=== PATIENT | female | born 1950 | race Caucasian/White ===

== ENCOUNTER 2017-12-16 00:13 | Day surgery (SDC) | payer OTHER ==
[~2017-12-16 00:13] MED LIST: AMPYRA10 MG PO; AUBAGIO7 MG PO; BACL10 PO; Budeprion Xl300 MG; DIAZ10 PO; FURO20 PO; INTE30I; LOSA25; REBIF; Solu-Medrol1000 MG IV; XANAFLEX; [UNRECOGNIZED DRUG - OTHER] PO
== END 2017-12-16 11:43 | disposition home or self-care (01) ==
LOC: ATC 00:13
DX: G35 Multiple sclerosis (principal)
CPT/HCPCS: 96365; J2930

== ENCOUNTER 2018-01-17 00:18 | Day surgery (SDC) | payer OTHER | END 2018-01-17 12:00 | disposition home or self-care (01) | LOC: ATC 00:18 | DX: G35 Multiple sclerosis (principal); E78.5 Hyperlipidemia, unspecified; E01.1 Iodine-deficiency related multinodular (endemic) goiter | CPT/HCPCS: 96365; J2930 ==

== ENCOUNTER 2018-02-17 00:28 | Day surgery (SDC) | payer OTHER | END 2018-02-17 11:30 | disposition home or self-care (01) | LOC: ATC 00:28 | DX: G35 Multiple sclerosis (principal) | CPT/HCPCS: 96365; J2930 ==

== ENCOUNTER 2018-05-07 09:59 | Day surgery (SDC) | payer OTHER | END 2018-05-07 11:19 | disposition home or self-care (01) | LOC: ATC 09:59 | DX: G35 Multiple sclerosis (principal) | CPT/HCPCS: 96365; J2930 ==

== ENCOUNTER 2018-06-06 00:25 | Day surgery (SDC) | payer OTHER | END 2018-06-06 23:37 | disposition home or self-care (01) | LOC: ATC 00:25 | DX: G35 Multiple sclerosis (principal) | CPT/HCPCS: J2930 ==

== ENCOUNTER 2018-06-11 00:03 | Day surgery (SDC) | payer OTHER | END 2018-06-11 11:20 | disposition home or self-care (01) | LOC: ATC 00:03 | DX: G35 Multiple sclerosis (principal) | CPT/HCPCS: J2930 ==

== ENCOUNTER 2018-07-03 00:20 | Day surgery (SDC) | payer OTHER | END 2018-07-03 22:38 | disposition home or self-care (01) | LOC: ATC 00:20 | DX: G35 Multiple sclerosis (principal) | CPT/HCPCS: 96365; J2930 ==

== ENCOUNTER 2018-08-04 00:14 | Day surgery (SDC) | payer OTHER | END 2018-08-04 22:40 | disposition home or self-care (01) | LOC: ATC 00:14 | DX: G35 Multiple sclerosis (principal) | CPT/HCPCS: J2930 ==

== ENCOUNTER 2018-08-07 00:24 | Day surgery (SDC) | payer OTHER | END 2018-08-07 11:35 | disposition home or self-care (01) | LOC: ATC 00:24 | DX: G35 Multiple sclerosis (principal) | CPT/HCPCS: 96365; J2930 ==

== ENCOUNTER 2018-11-04 00:03 | Day surgery (SDC) | payer OTHER ==
[2018-11-04] MEDS ORDERED: Zanaflex4 MG PO (12:02)
[2018-11-04] MEDS ORDERED: TRAZ50 PO (12:05)
[2018-11-04] MEDS ORDERED: AMPYRA10 MG PO (12:06)
[2018-11-04] MEDS ORDERED: GABA300T24 PO (12:08)
== END 2018-11-04 11:46 | disposition home or self-care (01) ==
LOC: ATC 00:03
DX: G35 Multiple sclerosis (principal)
CPT/HCPCS: 96365; J2930

== ENCOUNTER 2018-12-18 00:09 | Day surgery (SDC) | payer OTHER ==
[~2018-12-18 00:09] MED LIST changes: +GABA300T24 PO; +TRAZ50 PO; +Zanaflex4 MG PO
== END 2018-12-18 11:47 | disposition home or self-care (01) ==
LOC: ATC 00:09
DX: G35 Multiple sclerosis (principal); E55.9 Vitamin D deficiency, unspecified; R26.89 Other abnormalities of gait and mobility; M62.838 Other muscle spasm; R53.83 Other fatigue
CPT/HCPCS: 96365; J2930

== ENCOUNTER 2019-01-14 | Day surgery (SDC) | payer OTHER | END 2019-01-14 22:49 | disposition home or self-care (01) | LOC: ATC | DX: G35 Multiple sclerosis (principal); I10 Essential (primary) hypertension; E78.5 Hyperlipidemia, unspecified; F32.9 Major depressive disorder, single episode, unspecified; Z79.899 Other long term (current) drug therapy | CPT/HCPCS: 96365; J2930 ==

== ENCOUNTER 2019-01-30 00:37 | Day surgery (SDC) | payer OTHER | END 2019-01-30 12:00 | disposition home or self-care (01) | LOC: ATC 00:37 | DX: G35 Multiple sclerosis (principal); I10 Essential (primary) hypertension; E78.5 Hyperlipidemia, unspecified; F32.9 Major depressive disorder, single episode, unspecified; Z79.899 Other long term (current) drug therapy | CPT/HCPCS: 96365; J2930 ==

== ENCOUNTER 2019-03-02 00:26 | Day surgery (SDC) | payer OTHER | END 2019-03-02 11:53 | disposition home or self-care (01) | LOC: ATC 00:26 | DX: G35 Multiple sclerosis (principal); E78.5 Hyperlipidemia, unspecified; I10 Essential (primary) hypertension | CPT/HCPCS: J2930 ==

== ENCOUNTER 2019-04-29 00:14 | Day surgery (SDC) | payer OTHER ==
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
== END 2019-04-29 11:40 | disposition home or self-care (01) ==
LOC: ATC 00:14
DX: M54.16 Radiculopathy, lumbar region (principal); F32.9 Major depressive disorder, single episode, unspecified; E78.5 Hyperlipidemia, unspecified; L40.9 Psoriasis, unspecified; Z79.899 Other long term (current) drug therapy
CPT/HCPCS: 96365; J2930

== ENCOUNTER 2019-06-01 00:36 | Day surgery (SDC) | payer OTHER | END 2019-06-01 08:53 | disposition home or self-care (01) | LOC: ATC 00:36 | DX: M54.16 Radiculopathy, lumbar region (principal); F32.9 Major depressive disorder, single episode, unspecified; E78.5 Hyperlipidemia, unspecified; L40.9 Psoriasis, unspecified; Z79.899 Other long term (current) drug therapy; Z79.891 Long term (current) use of opiate analgesic | CPT/HCPCS: 96365; J2930 ==

== ENCOUNTER 2019-07-02 00:24 | Day surgery (SDC) | payer OTHER | END 2019-07-02 11:52 | disposition home or self-care (01) | LOC: ATC 00:24 | DX: G35 Multiple sclerosis (principal); E55.9 Vitamin D deficiency, unspecified; Z79.899 Other long term (current) drug therapy | CPT/HCPCS: 96365; J2930 ==

== ENCOUNTER 2019-08-05 00:17 | Day surgery (SDC) | payer OTHER | END 2019-08-05 11:36 | disposition home or self-care (01) | LOC: ATC 00:17 | DX: G35 Multiple sclerosis (principal) | CPT/HCPCS: 96365; J2930 ==

== ENCOUNTER 2019-09-03 00:08 | Day surgery (SDC) | payer OTHER | END 2019-09-03 11:40 | disposition home or self-care (01) | LOC: ATC 00:08 | DX: G35 Multiple sclerosis (principal); G43.909 Migraine, unspecified, not intractable, without status migrainosus; F32.9 Major depressive disorder, single episode, unspecified; G89.29 Other chronic pain; M54.9 Dorsalgia, unspecified; M54.2 Cervicalgia; N31.9 Neuromuscular dysfunction of bladder, unspecified; Z79.899 Other long term (current) drug therapy | CPT/HCPCS: 96365; J2930 ==

== ENCOUNTER 2019-10-30 00:20 | Day surgery (SDC) | payer OTHER | END 2019-10-30 11:48 | disposition home or self-care (01) | LOC: ATC 00:20 | DX: G35 Multiple sclerosis (principal); N31.9 Neuromuscular dysfunction of bladder, unspecified; G43.909 Migraine, unspecified, not intractable, without status migrainosus; F32.9 Major depressive disorder, single episode, unspecified; G89.29 Other chronic pain; M54.9 Dorsalgia, unspecified; M54.2 Cervicalgia; E66.3 Overweight; Z68.22 Body mass index [BMI] 22.0-22.9, adult; Z79.899 Other long term (current) drug therapy | CPT/HCPCS: 96365; J2930 ==

== ENCOUNTER 2019-11-25 00:06 | Day surgery (SDC) | payer OTHER | END 2019-11-25 12:09 | disposition home or self-care (01) | LOC: ATC 00:06 | DX: G35 Multiple sclerosis (principal); N31.9 Neuromuscular dysfunction of bladder, unspecified; G43.909 Migraine, unspecified, not intractable, without status migrainosus; F32.9 Major depressive disorder, single episode, unspecified; G89.29 Other chronic pain; M54.9 Dorsalgia, unspecified; M54.2 Cervicalgia; E55.9 Vitamin D deficiency, unspecified; R26.89 Other abnormalities of gait and mobility; Z79.899 Other long term (current) drug therapy | CPT/HCPCS: 96365; J2930 ==

== ENCOUNTER 2020-01-04 00:05 | Day surgery (SDC) | payer OTHER | END 2020-01-04 12:16 | disposition home or self-care (01) | LOC: ATC 00:05 | DX: G35 Multiple sclerosis (principal) | CPT/HCPCS: 96365; J2930 ==

== ENCOUNTER 2020-03-04 00:46 | Day surgery (SDC) | payer OTHER | END 2020-03-04 22:57 | disposition home or self-care (01) | LOC: ATC 00:46 | DX: G35 Multiple sclerosis (principal); E55.9 Vitamin D deficiency, unspecified; G43.909 Migraine, unspecified, not intractable, without status migrainosus; F32.9 Major depressive disorder, single episode, unspecified; M54.2 Cervicalgia; G89.29 Other chronic pain; Z79.899 Other long term (current) drug therapy | CPT/HCPCS: J2930 ==

== ENCOUNTER 2020-03-07 00:08 | Day surgery (SDC) | payer OTHER | END 2020-03-07 12:15 | disposition home or self-care (01) | LOC: ATC 00:08 | DX: G35 Multiple sclerosis (principal); E55.9 Vitamin D deficiency, unspecified; R26.89 Other abnormalities of gait and mobility; R53.83 Other fatigue; M62.838 Other muscle spasm; Z79.899 Other long term (current) drug therapy; F32.9 Major depressive disorder, single episode, unspecified | CPT/HCPCS: J2930 ==

== ENCOUNTER 2020-04-06 00:05 | Day surgery (SDC) | payer OTHER | END 2020-04-06 22:41 | disposition home or self-care (01) | LOC: ATC 00:05 | DX: G35 Multiple sclerosis (principal); E55.9 Vitamin D deficiency, unspecified; R26.89 Other abnormalities of gait and mobility; M62.838 Other muscle spasm; Z79.899 Other long term (current) drug therapy | CPT/HCPCS: J2930 ==

== ENCOUNTER 2020-04-13 00:05 | Day surgery (SDC) | payer OTHER ==
[~2020-04-13 00:05] MED LIST changes: +ADVIL200 MG PO; +AVONEX30 MCG/0.1 IM; -INTE30I; -[UNRECOGNIZED DRUG - OTHER] PO
== END 2020-04-13 12:05 | disposition home or self-care (01) ==
LOC: ATC 00:05
DX: G35 Multiple sclerosis (principal); F32.9 Major depressive disorder, single episode, unspecified; Z79.899 Other long term (current) drug therapy
CPT/HCPCS: 96365; J2930

== ENCOUNTER 2020-05-16 00:05 | Day surgery (SDC) | payer OTHER | END 2020-05-16 12:25 | disposition home or self-care (01) | LOC: ATC 00:05 | DX: G35 Multiple sclerosis (principal); F32.9 Major depressive disorder, single episode, unspecified; E55.9 Vitamin D deficiency, unspecified; Z79.899 Other long term (current) drug therapy | CPT/HCPCS: 96365; J2930 ==

== ENCOUNTER 2020-08-10 00:28 | Day surgery (SDC) | payer OTHER ==
[~2020-08-10 00:28] MED LIST changes: -ADVIL200 MG PO; +AVONEX PEN30 MCG/0.2 IM; -AVONEX30 MCG/0.1 IM; +IBUP200 PO; +METHYLPREDNIS1000 M1 IV; -Solu-Medrol1000 MG IV
== END 2020-08-10 11:52 | disposition home or self-care (01) ==
LOC: ATC 00:28
DX: G35 Multiple sclerosis (principal); F32.9 Major depressive disorder, single episode, unspecified; E55.9 Vitamin D deficiency, unspecified; R53.83 Other fatigue; Z79.899 Other long term (current) drug therapy
CPT/HCPCS: 96365; J2930

== ENCOUNTER 2020-09-08 00:42 | Day surgery (SDC) | payer OTHER | END 2020-09-08 12:10 | disposition home or self-care (01) | LOC: ATC 00:42 | DX: G35 Multiple sclerosis (principal); F32.9 Major depressive disorder, single episode, unspecified; Z79.899 Other long term (current) drug therapy; E55.9 Vitamin D deficiency, unspecified | CPT/HCPCS: 96365; J2930 ==

== ENCOUNTER 2020-10-10 01:53 | Day surgery (SDC) | payer OTHER | END 2020-10-10 11:46 | disposition home or self-care (01) | LOC: ATC 01:53 | DX: G35 Multiple sclerosis (principal); G89.29 Other chronic pain; M54.5 Low back pain; M54.2 Cervicalgia; Z79.899 Other long term (current) drug therapy | CPT/HCPCS: 96365; J2930 ==

== ENCOUNTER 2020-11-09 05:45 | Day surgery (SDC) | payer OTHER | END 2020-11-09 11:50 | disposition home or self-care (01) | LOC: ATC 05:45 | DX: G35 Multiple sclerosis (principal); R32 Unspecified urinary incontinence; Z79.899 Other long term (current) drug therapy | CPT/HCPCS: 96365; J2930 ==

== ENCOUNTER 2020-12-13 00:18 | Day surgery (SDC) | payer OTHER | END 2020-12-13 11:50 | disposition home or self-care (01) | LOC: ATC 00:18 | DX: G35 Multiple sclerosis (principal); Z79.52 Long term (current) use of systemic steroids; Z79.899 Other long term (current) drug therapy; Z95.828 Presence of other vascular implants and grafts | CPT/HCPCS: 96365; J2930 ==

== ENCOUNTER → 2021-03-30 | Outpatient (CLI) | payer OTHER ==
[2021-03-30 10:57] LABS: Source, Urine Clean Catch
[2021-03-30 12:18] LABS: Appearance, Urine Clear (Clear); Bilirubin, Urine Neg (Neg); Blood, Urine Neg (Neg); Color, Urine Yellow (P-Yellow); Glucose Qualitative, Urine Neg (Neg); Ketones, Urine Neg (Neg); Leukocyte Esterase, Urine Neg (Neg); Nitrite, Urine Neg (Neg); Protein, Urine Neg (Neg); Urobilinogen, Urine NORM (Normal)
== END | disposition home or self-care (01) ==
LOC: LAB SHORT 10:19 → LAB 10:19
PROVIDERS: Student in an Organized Health Care Education/Training Program
DX: R35.8 Other polyuria (principal)
CPT/HCPCS: 81003

== ENCOUNTER → 2021-07-21 | Outpatient (CLI) | payer OTHER | END | disposition home or self-care (01) | LOC: LAB 13:00 → LAB SHORT 13:00 | DX: S81.802A Unspecified open wound, left lower leg, initial encounter (principal) | CPT/HCPCS: 87070; 87075; 87077; 87186; 87205 ==

== ENCOUNTER 2021-08-01 02:23 | Day surgery (SDC) | payer OTHER | END 2021-08-01 22:42 | disposition home or self-care (01) | LOC: WOUND 02:23 | DX: S81.801A Unspecified open wound, right lower leg, initial encounter (principal); S81.802A Unspecified open wound, left lower leg, initial encounter; L97.822 Non-pressure chronic ulcer of other part of left lower leg with fat layer exposed; I87.2 Venous insufficiency (chronic) (peripheral); I73.9 Peripheral vascular disease, unspecified; G35 Multiple sclerosis; W22.8XXA Striking against or struck by other objects, initial encounter | CPT/HCPCS: A9270; G0463 ==

== ENCOUNTER 2021-08-09 00:04 | Day surgery (SDC) | payer OTHER | END 2021-08-09 23:58 | disposition home or self-care (01) | LOC: WOUND 00:04 | DX: S81.802A Unspecified open wound, left lower leg, initial encounter (principal); S81.801A Unspecified open wound, right lower leg, initial encounter; X58.XXXA Exposure to other specified factors, initial encounter; L97.922 Non-pressure chronic ulcer of unspecified part of left lower leg with fat layer exposed; I87.2 Venous insufficiency (chronic) (peripheral); I73.9 Peripheral vascular disease, unspecified | CPT/HCPCS: A9270 ==

== ENCOUNTER 2021-08-16 02:34 | Day surgery (SDC) | payer OTHER | END 2021-08-16 22:48 | disposition home or self-care (01) | LOC: WOUND 02:34 | DX: L97.922 Non-pressure chronic ulcer of unspecified part of left lower leg with fat layer exposed (principal); L97.812 Non-pressure chronic ulcer of other part of right lower leg with fat layer exposed; I87.2 Venous insufficiency (chronic) (peripheral); I73.9 Peripheral vascular disease, unspecified | CPT/HCPCS: A9270 ==

== ENCOUNTER 2021-08-23 02:06 | Day surgery (SDC) | payer OTHER | END 2021-08-23 23:03 | disposition home or self-care (01) | LOC: WOUND 02:06 | DX: L97.922 Non-pressure chronic ulcer of unspecified part of left lower leg with fat layer exposed (principal); L97.812 Non-pressure chronic ulcer of other part of right lower leg with fat layer exposed; I87.2 Venous insufficiency (chronic) (peripheral); I73.9 Peripheral vascular disease, unspecified | CPT/HCPCS: A9270 ==

== ENCOUNTER 2021-08-28 03:21 | Day surgery (SDC) | payer OTHER | END 2021-08-28 22:52 | disposition home or self-care (01) | LOC: WOUND 03:21 | DX: S81.802A Unspecified open wound, left lower leg, initial encounter (principal); S81.801A Unspecified open wound, right lower leg, initial encounter; W22.8XXA Striking against or struck by other objects, initial encounter; W17.89XA Other fall from one level to another, initial encounter; L97.822 Non-pressure chronic ulcer of other part of left lower leg with fat layer exposed; L97.812 Non-pressure chronic ulcer of other part of right lower leg with fat layer exposed; I87.2 Venous insufficiency (chronic) (peripheral); I73.9 Peripheral vascular disease, unspecified | CPT/HCPCS: A9270 ==

== ENCOUNTER 2021-09-08 03:48 | Day surgery (SDC) | payer OTHER | END 2021-09-08 22:52 | disposition home or self-care (01) | LOC: WOUND 03:48 | DX: L97.922 Non-pressure chronic ulcer of unspecified part of left lower leg with fat layer exposed (principal); L97.812 Non-pressure chronic ulcer of other part of right lower leg with fat layer exposed; I87.2 Venous insufficiency (chronic) (peripheral); I73.9 Peripheral vascular disease, unspecified | CPT/HCPCS: G0463 ==

== ENCOUNTER 2021-09-13 00:31 | Day surgery (SDC) | payer OTHER | END 2021-09-13 23:00 | disposition home or self-care (01) | LOC: WOUND 00:31 | DX: L97.922 Non-pressure chronic ulcer of unspecified part of left lower leg with fat layer exposed (principal); L97.812 Non-pressure chronic ulcer of other part of right lower leg with fat layer exposed; I87.2 Venous insufficiency (chronic) (peripheral); I73.9 Peripheral vascular disease, unspecified | CPT/HCPCS: A9270 ==

== ENCOUNTER 2021-09-15 05:47 | Day surgery (SDC) | payer OTHER | END 2021-09-15 23:34 | disposition home or self-care (01) | LOC: WOUND 05:47 | DX: L97.922 Non-pressure chronic ulcer of unspecified part of left lower leg with fat layer exposed (principal); L97.812 Non-pressure chronic ulcer of other part of right lower leg with fat layer exposed; I87.2 Venous insufficiency (chronic) (peripheral); I73.9 Peripheral vascular disease, unspecified ==

== ENCOUNTER 2021-09-20 02:29 | Day surgery (SDC) | payer OTHER | END 2021-09-20 12:00 | disposition home or self-care (01) | LOC: WOUND 02:29 | DX: L97.922 Non-pressure chronic ulcer of unspecified part of left lower leg with fat layer exposed (principal); L97.812 Non-pressure chronic ulcer of other part of right lower leg with fat layer exposed; I87.2 Venous insufficiency (chronic) (peripheral); I73.9 Peripheral vascular disease, unspecified | CPT/HCPCS: A9270 ==

== ENCOUNTER 2021-09-27 04:51 | Day surgery (SDC) | payer OTHER | END 2021-09-27 22:58 | disposition home or self-care (01) | LOC: WOUND 04:51 | DX: S81.802A Unspecified open wound, left lower leg, initial encounter (principal); X58.XXXA Exposure to other specified factors, initial encounter; L97.922 Non-pressure chronic ulcer of unspecified part of left lower leg with fat layer exposed; L97.812 Non-pressure chronic ulcer of other part of right lower leg with fat layer exposed; I87.2 Venous insufficiency (chronic) (peripheral); I73.9 Peripheral vascular disease, unspecified | CPT/HCPCS: A9270 ==

== ENCOUNTER 2021-10-04 03:23 | Day surgery (SDC) | payer OTHER | END 2021-10-04 23:49 | disposition home or self-care (01) | LOC: WOUND 03:23 | DX: L97.822 Non-pressure chronic ulcer of other part of left lower leg with fat layer exposed (principal); L97.812 Non-pressure chronic ulcer of other part of right lower leg with fat layer exposed; I87.2 Venous insufficiency (chronic) (peripheral); I73.9 Peripheral vascular disease, unspecified | CPT/HCPCS: A9270 ==

== ENCOUNTER 2021-10-16 03:16 | Day surgery (SDC) | payer OTHER | END 2021-10-16 22:46 | disposition home or self-care (01) | LOC: WOUND 03:16 | DX: L97.922 Non-pressure chronic ulcer of unspecified part of left lower leg with fat layer exposed (principal); L97.812 Non-pressure chronic ulcer of other part of right lower leg with fat layer exposed; I87.2 Venous insufficiency (chronic) (peripheral); I73.9 Peripheral vascular disease, unspecified | CPT/HCPCS: A9270 ==

== ENCOUNTER 2021-10-23 04:17 | Day surgery (SDC) | payer OTHER | END 2021-10-23 23:08 | disposition home or self-care (01) | LOC: WOUND 04:17 | DX: L97.822 Non-pressure chronic ulcer of other part of left lower leg with fat layer exposed (principal); L97.812 Non-pressure chronic ulcer of other part of right lower leg with fat layer exposed; I87.2 Venous insufficiency (chronic) (peripheral); I73.9 Peripheral vascular disease, unspecified | CPT/HCPCS: A9270; G0463 ==

== ENCOUNTER 2021-10-30 02:55 | Day surgery (SDC) | payer OTHER | END 2021-10-30 22:47 | disposition home or self-care (01) | LOC: WOUND 02:55 | DX: L97.822 Non-pressure chronic ulcer of other part of left lower leg with fat layer exposed (principal); L97.812 Non-pressure chronic ulcer of other part of right lower leg with fat layer exposed; I87.2 Venous insufficiency (chronic) (peripheral); I73.9 Peripheral vascular disease, unspecified | CPT/HCPCS: A9270; G0463 ==

== ENCOUNTER 2021-11-06 03:46 | Day surgery (SDC) | payer OTHER | END 2021-11-06 22:41 | disposition home or self-care (01) | LOC: WOUND 03:46 | DX: L97.812 Non-pressure chronic ulcer of other part of right lower leg with fat layer exposed (principal); L97.922 Non-pressure chronic ulcer of unspecified part of left lower leg with fat layer exposed; I87.2 Venous insufficiency (chronic) (peripheral); I73.9 Peripheral vascular disease, unspecified | CPT/HCPCS: A9270; G0463 ==

== ENCOUNTER 2021-11-20 01:08 | Day surgery (SDC) | payer OTHER | END 2021-11-20 23:18 | disposition home or self-care (01) | LOC: WOUND 01:08 | DX: L97.822 Non-pressure chronic ulcer of other part of left lower leg with fat layer exposed (principal); L97.812 Non-pressure chronic ulcer of other part of right lower leg with fat layer exposed; I87.2 Venous insufficiency (chronic) (peripheral); I73.9 Peripheral vascular disease, unspecified | CPT/HCPCS: G0463 ==

== ENCOUNTER 2021-12-04 03:00 | Day surgery (SDC) | payer OTHER | END 2021-12-04 22:39 | disposition home or self-care (01) | LOC: WOUND 03:00 | DX: L97.922 Non-pressure chronic ulcer of unspecified part of left lower leg with fat layer exposed (principal); L97.812 Non-pressure chronic ulcer of other part of right lower leg with fat layer exposed; I87.2 Venous insufficiency (chronic) (peripheral); I73.9 Peripheral vascular disease, unspecified; G35 Multiple sclerosis | CPT/HCPCS: A9270; G0463 ==

== ENCOUNTER 2021-12-06 09:39 | Day surgery (SDC) | payer OTHER | END 2021-12-06 22:48 | disposition home or self-care (01) | LOC: WOUND 09:39 | DX: L97.922 Non-pressure chronic ulcer of unspecified part of left lower leg with fat layer exposed (principal); L97.812 Non-pressure chronic ulcer of other part of right lower leg with fat layer exposed; I87.2 Venous insufficiency (chronic) (peripheral); I73.9 Peripheral vascular disease, unspecified ==

== ENCOUNTER 2021-12-11 03:22 | Day surgery (SDC) | payer OTHER | END 2021-12-11 23:28 | disposition home or self-care (01) | LOC: WOUND 03:22 | DX: L97.922 Non-pressure chronic ulcer of unspecified part of left lower leg with fat layer exposed (principal); L97.812 Non-pressure chronic ulcer of other part of right lower leg with fat layer exposed; I87.2 Venous insufficiency (chronic) (peripheral); I73.9 Peripheral vascular disease, unspecified; G35 Multiple sclerosis | CPT/HCPCS: A9270 ==

== ENCOUNTER 2021-12-14 02:21 | Day surgery (SDC) | payer OTHER | END 2021-12-17 03:35 | disposition home or self-care (01) | LOC: WOUND 02:21 | DX: L97.922 Non-pressure chronic ulcer of unspecified part of left lower leg with fat layer exposed (principal); L97.812 Non-pressure chronic ulcer of other part of right lower leg with fat layer exposed; I87.2 Venous insufficiency (chronic) (peripheral); I73.9 Peripheral vascular disease, unspecified ==

== ENCOUNTER 2021-12-18 03:20 | Day surgery (SDC) | payer OTHER | END 2021-12-18 23:28 | disposition home or self-care (01) | LOC: WOUND 03:20 | DX: L97.922 Non-pressure chronic ulcer of unspecified part of left lower leg with fat layer exposed (principal); L97.812 Non-pressure chronic ulcer of other part of right lower leg with fat layer exposed; I87.2 Venous insufficiency (chronic) (peripheral); I73.9 Peripheral vascular disease, unspecified | CPT/HCPCS: A9270 ==

== ENCOUNTER 2021-12-20 02:14 | Day surgery (SDC) | payer OTHER | END 2021-12-20 02:15 | disposition home or self-care (01) | LOC: WOUND 02:14 | DX: L97.922 Non-pressure chronic ulcer of unspecified part of left lower leg with fat layer exposed (principal); L97.812 Non-pressure chronic ulcer of other part of right lower leg with fat layer exposed; I87.2 Venous insufficiency (chronic) (peripheral); I73.9 Peripheral vascular disease, unspecified ==

== ENCOUNTER 2021-12-25 03:05 | Day surgery (SDC) | payer OTHER | END 2021-12-25 23:24 | disposition home or self-care (01) | LOC: WOUND 03:05 | DX: S81.802A Unspecified open wound, left lower leg, initial encounter (principal); L97.812 Non-pressure chronic ulcer of other part of right lower leg with fat layer exposed; I87.2 Venous insufficiency (chronic) (peripheral); I73.9 Peripheral vascular disease, unspecified; W22.8XXA Striking against or struck by other objects, initial encounter | CPT/HCPCS: A9270; G0463 ==

== ENCOUNTER 2021-12-29 10:55 | Day surgery (SDC) | payer OTHER | END 2021-12-29 12:00 | disposition home or self-care (01) | LOC: WOUND 10:55 | DX: L97.822 Non-pressure chronic ulcer of other part of left lower leg with fat layer exposed (principal); L97.812 Non-pressure chronic ulcer of other part of right lower leg with fat layer exposed; I87.2 Venous insufficiency (chronic) (peripheral); I73.9 Peripheral vascular disease, unspecified | CPT/HCPCS: A9270; G0463 ==

== ENCOUNTER 2022-01-01 02:08 | Day surgery (SDC) | payer OTHER | END 2022-01-01 23:14 | disposition home or self-care (01) | LOC: WOUND 02:08 | DX: L97.922 Non-pressure chronic ulcer of unspecified part of left lower leg with fat layer exposed (principal); L97.812 Non-pressure chronic ulcer of other part of right lower leg with fat layer exposed; I87.2 Venous insufficiency (chronic) (peripheral); I73.9 Peripheral vascular disease, unspecified; G35 Multiple sclerosis | CPT/HCPCS: A9270; G0463 ==

== ENCOUNTER 2022-01-05 03:07 | Day surgery (SDC) | payer OTHER | END 2022-01-05 23:00 | disposition home or self-care (01) | LOC: WOUND 03:07 | DX: I87.312 Chronic venous hypertension (idiopathic) with ulcer of left lower extremity (principal); L97.812 Non-pressure chronic ulcer of other part of right lower leg with fat layer exposed; L97.922 Non-pressure chronic ulcer of unspecified part of left lower leg with fat layer exposed; I73.9 Peripheral vascular disease, unspecified; I87.2 Venous insufficiency (chronic) (peripheral) | CPT/HCPCS: A9270; G0463 ==

== ENCOUNTER 2022-01-08 01:38 | Day surgery (SDC) | payer OTHER | END 2022-01-08 23:27 | disposition home or self-care (01) | LOC: WOUND 01:38 | DX: L97.822 Non-pressure chronic ulcer of other part of left lower leg with fat layer exposed (principal); L97.812 Non-pressure chronic ulcer of other part of right lower leg with fat layer exposed; I87.2 Venous insufficiency (chronic) (peripheral); I73.9 Peripheral vascular disease, unspecified | CPT/HCPCS: A9270 ==

== ENCOUNTER 2022-01-12 01:03 | Day surgery (SDC) | payer OTHER | END 2022-01-12 23:54 | disposition home or self-care (01) | LOC: WOUND 01:03 | DX: L97.922 Non-pressure chronic ulcer of unspecified part of left lower leg with fat layer exposed (principal); L97.812 Non-pressure chronic ulcer of other part of right lower leg with fat layer exposed | CPT/HCPCS: G0463 ==

== ENCOUNTER 2022-01-15 09:20 | Day surgery (SDC) | payer OTHER | END 2022-01-15 23:28 | disposition home or self-care (01) | LOC: WOUND 09:20 | DX: L97.822 Non-pressure chronic ulcer of other part of left lower leg with fat layer exposed (principal); L97.812 Non-pressure chronic ulcer of other part of right lower leg with fat layer exposed; I87.2 Venous insufficiency (chronic) (peripheral); I73.9 Peripheral vascular disease, unspecified | CPT/HCPCS: A9270 ==

== ENCOUNTER 2022-01-22 05:52 | Day surgery (SDC) | payer OTHER | END 2022-01-22 23:27 | disposition home or self-care (01) | LOC: WOUND 05:52 | DX: L97.822 Non-pressure chronic ulcer of other part of left lower leg with fat layer exposed (principal); L97.812 Non-pressure chronic ulcer of other part of right lower leg with fat layer exposed; I87.2 Venous insufficiency (chronic) (peripheral); I73.9 Peripheral vascular disease, unspecified | CPT/HCPCS: A9270 ==

== ENCOUNTER 2022-01-24 03:09 | Day surgery (SDC) | payer OTHER | END 2022-01-24 22:56 | disposition home or self-care (01) | LOC: WOUND 03:09 | DX: L97.922 Non-pressure chronic ulcer of unspecified part of left lower leg with fat layer exposed (principal); L97.812 Non-pressure chronic ulcer of other part of right lower leg with fat layer exposed; I87.2 Venous insufficiency (chronic) (peripheral); I73.9 Peripheral vascular disease, unspecified ==

== ENCOUNTER 2022-01-29 02:26 | Day surgery (SDC) | payer OTHER | END 2022-01-29 22:40 | disposition home or self-care (01) | LOC: WOUND 02:26 | DX: L97.822 Non-pressure chronic ulcer of other part of left lower leg with fat layer exposed (principal); L97.812 Non-pressure chronic ulcer of other part of right lower leg with fat layer exposed; I87.2 Venous insufficiency (chronic) (peripheral); I73.9 Peripheral vascular disease, unspecified; G35 Multiple sclerosis | CPT/HCPCS: A9270 ==

== ENCOUNTER 2022-02-05 01:26 | Day surgery (SDC) | payer OTHER | END 2022-02-05 23:32 | disposition home or self-care (01) | LOC: WOUND 01:26 | DX: L97.822 Non-pressure chronic ulcer of other part of left lower leg with fat layer exposed (principal); I87.2 Venous insufficiency (chronic) (peripheral); I73.9 Peripheral vascular disease, unspecified | CPT/HCPCS: A9270 ==

== ENCOUNTER 2022-02-09 00:14 | Day surgery (SDC) | payer OTHER | END 2022-02-09 22:58 | disposition home or self-care (01) | LOC: WOUND 00:14 | DX: L97.922 Non-pressure chronic ulcer of unspecified part of left lower leg with fat layer exposed (principal); L97.812 Non-pressure chronic ulcer of other part of right lower leg with fat layer exposed; I87.2 Venous insufficiency (chronic) (peripheral); I73.9 Peripheral vascular disease, unspecified | CPT/HCPCS: A9270 ==

== ENCOUNTER 2022-02-12 02:16 | Day surgery (SDC) | payer OTHER | END 2022-02-12 23:14 | disposition home or self-care (01) | LOC: WOUND 02:16 | DX: L97.822 Non-pressure chronic ulcer of other part of left lower leg with fat layer exposed (principal); L97.812 Non-pressure chronic ulcer of other part of right lower leg with fat layer exposed; I87.2 Venous insufficiency (chronic) (peripheral); I73.9 Peripheral vascular disease, unspecified | CPT/HCPCS: A9270 ==

== ENCOUNTER 2022-02-19 01:07 | Day surgery (SDC) | payer OTHER | END 2022-02-19 23:35 | disposition home or self-care (01) | LOC: WOUND 01:07 | DX: L97.822 Non-pressure chronic ulcer of other part of left lower leg with fat layer exposed (principal); L97.812 Non-pressure chronic ulcer of other part of right lower leg with fat layer exposed; I87.2 Venous insufficiency (chronic) (peripheral); I73.9 Peripheral vascular disease, unspecified; G35 Multiple sclerosis | CPT/HCPCS: A9270 ==

== ENCOUNTER 2022-02-26 08:00 | Day surgery (SDC) | payer OTHER | END 2022-02-26 23:59 | disposition home or self-care (01) | LOC: WOUND 08:00 | DX: L97.822 Non-pressure chronic ulcer of other part of left lower leg with fat layer exposed (principal); L97.812 Non-pressure chronic ulcer of other part of right lower leg with fat layer exposed; I87.2 Venous insufficiency (chronic) (peripheral); I73.9 Peripheral vascular disease, unspecified; G35 Multiple sclerosis ==

== ENCOUNTER 2022-03-05 01:58 | Day surgery (SDC) | payer OTHER | END 2022-03-05 22:46 | disposition home or self-care (01) | LOC: WOUND 01:58 | DX: L97.825 Non-pressure chronic ulcer of other part of left lower leg with muscle involvement without evidence of necrosis (principal); L97.812 Non-pressure chronic ulcer of other part of right lower leg with fat layer exposed; I87.2 Venous insufficiency (chronic) (peripheral); I73.9 Peripheral vascular disease, unspecified; G35 Multiple sclerosis | CPT/HCPCS: A9270 ==

== ENCOUNTER 2022-03-23 00:25 | Day surgery (SDC) | payer OTHER | END 2022-03-23 22:51 | disposition home or self-care (01) | LOC: WOUND 00:25 | DX: L97.822 Non-pressure chronic ulcer of other part of left lower leg with fat layer exposed (principal); L97.812 Non-pressure chronic ulcer of other part of right lower leg with fat layer exposed; I87.2 Venous insufficiency (chronic) (peripheral); I73.9 Peripheral vascular disease, unspecified | CPT/HCPCS: A9270; G0463 ==

== ENCOUNTER 2022-03-30 01:54 | Day surgery (SDC) | payer OTHER | END 2022-03-30 22:59 | disposition home or self-care (01) | LOC: WOUND 01:54 | DX: L97.825 Non-pressure chronic ulcer of other part of left lower leg with muscle involvement without evidence of necrosis (principal); L97.822 Non-pressure chronic ulcer of other part of left lower leg with fat layer exposed; L97.812 Non-pressure chronic ulcer of other part of right lower leg with fat layer exposed; I87.2 Venous insufficiency (chronic) (peripheral); I73.9 Peripheral vascular disease, unspecified | CPT/HCPCS: A9270; G0463 ==

== ENCOUNTER 2022-04-13 05:23 | Day surgery (SDC) | payer OTHER | END 2022-04-13 22:43 | disposition home or self-care (01) | LOC: WOUND 05:23 | DX: L97.812 Non-pressure chronic ulcer of other part of right lower leg with fat layer exposed (principal); L97.822 Non-pressure chronic ulcer of other part of left lower leg with fat layer exposed; L97.222 Non-pressure chronic ulcer of left calf with fat layer exposed; L03.115 Cellulitis of right lower limb; I87.2 Venous insufficiency (chronic) (peripheral) | CPT/HCPCS: A9270; G0463 ==

== ENCOUNTER 2022-04-20 03:33 | Day surgery (SDC) | payer OTHER | END 2022-04-20 23:16 | disposition home or self-care (01) | LOC: WOUND 03:33 | DX: L97.812 Non-pressure chronic ulcer of other part of right lower leg with fat layer exposed (principal); L97.222 Non-pressure chronic ulcer of left calf with fat layer exposed; L03.115 Cellulitis of right lower limb; I87.2 Venous insufficiency (chronic) (peripheral); G35 Multiple sclerosis | CPT/HCPCS: A9270; G0463 ==

== ENCOUNTER 2022-05-04 01:21 | Day surgery (SDC) | payer OTHER | END 2022-05-04 22:56 | disposition home or self-care (01) | LOC: WOUND 01:21 | DX: L97.812 Non-pressure chronic ulcer of other part of right lower leg with fat layer exposed (principal); L97.222 Non-pressure chronic ulcer of left calf with fat layer exposed; L03.115 Cellulitis of right lower limb; I87.2 Venous insufficiency (chronic) (peripheral) | CPT/HCPCS: A9270; G0463 ==

== ENCOUNTER 2022-05-23 08:00 | Day surgery (SDC) | payer OTHER | END 2022-05-23 23:59 | disposition home or self-care (01) | LOC: WOUND 08:00 | DX: L97.222 Non-pressure chronic ulcer of left calf with fat layer exposed (principal); L97.812 Non-pressure chronic ulcer of other part of right lower leg with fat layer exposed; L03.115 Cellulitis of right lower limb; I87.2 Venous insufficiency (chronic) (peripheral) | CPT/HCPCS: A9270; G0463 ==

== ENCOUNTER 2022-06-01 03:23 | Day surgery (SDC) | payer OTHER | END 2022-06-01 23:07 | disposition home or self-care (01) | LOC: WOUND 03:23 | DX: L97.822 Non-pressure chronic ulcer of other part of left lower leg with fat layer exposed (principal); I87.2 Venous insufficiency (chronic) (peripheral); L03.115 Cellulitis of right lower limb | CPT/HCPCS: A9270 ==

== ENCOUNTER 2022-06-07 01:38 | Day surgery (SDC) | payer OTHER | END 2022-06-08 23:34 | disposition home or self-care (01) | LOC: WOUND 01:38 | DX: L97.822 Non-pressure chronic ulcer of other part of left lower leg with fat layer exposed (principal); L03.115 Cellulitis of right lower limb; I87.2 Venous insufficiency (chronic) (peripheral) | CPT/HCPCS: A9270 ==

== ENCOUNTER 2022-06-15 01:39 | Day surgery (SDC) | payer OTHER | END 2022-06-15 23:01 | disposition home or self-care (01) | LOC: WOUND 01:39 | DX: L97.812 Non-pressure chronic ulcer of other part of right lower leg with fat layer exposed (principal); L97.822 Non-pressure chronic ulcer of other part of left lower leg with fat layer exposed; L97.222 Non-pressure chronic ulcer of left calf with fat layer exposed; L03.115 Cellulitis of right lower limb; I87.2 Venous insufficiency (chronic) (peripheral) | CPT/HCPCS: A9270; G0463 ==

== ENCOUNTER 2022-06-29 01:34 | Day surgery (SDC) | payer OTHER | END 2022-06-29 23:25 | disposition home or self-care (01) | LOC: WOUND 01:34 | DX: L97.822 Non-pressure chronic ulcer of other part of left lower leg with fat layer exposed (principal); L97.812 Non-pressure chronic ulcer of other part of right lower leg with fat layer exposed; L97.222 Non-pressure chronic ulcer of left calf with fat layer exposed; L03.115 Cellulitis of right lower limb; I87.2 Venous insufficiency (chronic) (peripheral) | CPT/HCPCS: A9270 ==

== ENCOUNTER → 2022-07-16 | Outpatient (CLI) | payer OTHER ==
[2022-07-16 17:56] LABS: Source, Urine Voided
[2022-07-16 19:09] LABS: Bacteria Few /hpf; Red Blood Cells, Urine 0-2 /hpf (0-2); Squamous Epithelial Cells Rare /hpf (Few)
== END | disposition home or self-care (01) ==
LOC: LAB SHORT 17:54 → LAB 17:54
PROVIDERS: Nurse Practitioner
DX: R35.0 Frequency of micturition (principal)
CPT/HCPCS: 81015

== ENCOUNTER 2022-07-18 03:49 | Day surgery (SDC) | payer OTHER | END 2022-07-18 22:50 | disposition home or self-care (01) | LOC: WOUND 03:49 | DX: L97.822 Non-pressure chronic ulcer of other part of left lower leg with fat layer exposed (principal); L97.812 Non-pressure chronic ulcer of other part of right lower leg with fat layer exposed; L89.513 Pressure ulcer of right ankle, stage 3; I87.2 Venous insufficiency (chronic) (peripheral); L03.115 Cellulitis of right lower limb; S81.011A Laceration without foreign body, right knee, initial encounter; X58.XXXA Exposure to other specified factors, initial encounter; G35 Multiple sclerosis | CPT/HCPCS: A9270 ==

== ENCOUNTER 2022-07-31 01:52 | Day surgery (SDC) | payer OTHER | END 2022-07-31 23:13 | disposition home or self-care (01) | LOC: WOUND 01:52 | DX: L97.812 Non-pressure chronic ulcer of other part of right lower leg with fat layer exposed (principal); L97.222 Non-pressure chronic ulcer of left calf with fat layer exposed; L89.513 Pressure ulcer of right ankle, stage 3; L97.822 Non-pressure chronic ulcer of other part of left lower leg with fat layer exposed; S81.011A Laceration without foreign body, right knee, initial encounter; X58.XXXA Exposure to other specified factors, initial encounter; L03.115 Cellulitis of right lower limb; I87.2 Venous insufficiency (chronic) (peripheral) | CPT/HCPCS: A9270 ==

== ENCOUNTER 2022-08-17 03:02 | Day surgery (SDC) | payer OTHER | END 2022-08-18 00:03 | disposition home or self-care (01) | LOC: WOUND 03:02 | DX: L97.822 Non-pressure chronic ulcer of other part of left lower leg with fat layer exposed (principal); L89.513 Pressure ulcer of right ankle, stage 3; L97.812 Non-pressure chronic ulcer of other part of right lower leg with fat layer exposed; L97.222 Non-pressure chronic ulcer of left calf with fat layer exposed; L03.115 Cellulitis of right lower limb; S81.011A Laceration without foreign body, right knee, initial encounter; W19.XXXA Unspecified fall, initial encounter; I87.2 Venous insufficiency (chronic) (peripheral) | CPT/HCPCS: A9270 ==

== ENCOUNTER 2022-08-31 03:19 | Day surgery (SDC) | payer OTHER | END 2022-08-31 23:30 | disposition home or self-care (01) | LOC: WOUND 03:19 | DX: L89.513 Pressure ulcer of right ankle, stage 3 (principal); L97.822 Non-pressure chronic ulcer of other part of left lower leg with fat layer exposed; L97.222 Non-pressure chronic ulcer of left calf with fat layer exposed; L97.812 Non-pressure chronic ulcer of other part of right lower leg with fat layer exposed; L03.115 Cellulitis of right lower limb; I87.2 Venous insufficiency (chronic) (peripheral) | CPT/HCPCS: A9270; G0463 ==

== ENCOUNTER 2022-09-12 02:19 | Day surgery (SDC) | payer OTHER | END 2022-09-12 22:49 | disposition home or self-care (01) | LOC: WOUND 02:19 | DX: L97.222 Non-pressure chronic ulcer of left calf with fat layer exposed (principal); L97.822 Non-pressure chronic ulcer of other part of left lower leg with fat layer exposed; L03.115 Cellulitis of right lower limb; L97.812 Non-pressure chronic ulcer of other part of right lower leg with fat layer exposed; L89.513 Pressure ulcer of right ankle, stage 3; I87.2 Venous insufficiency (chronic) (peripheral); G35 Multiple sclerosis | CPT/HCPCS: A9270; G0463 ==

== ENCOUNTER 2022-09-24 12:45 | Day surgery (SDC) | payer OTHER | END 2022-09-24 22:53 | disposition home or self-care (01) | LOC: WOUND 12:45 | DX: L89.513 Pressure ulcer of right ankle, stage 3 (principal); I87.2 Venous insufficiency (chronic) (peripheral); L97.822 Non-pressure chronic ulcer of other part of left lower leg with fat layer exposed; L03.115 Cellulitis of right lower limb | CPT/HCPCS: A9270; G0463 ==

== ENCOUNTER 2022-10-01 01:48 | Day surgery (SDC) | payer OTHER | END 2022-10-01 23:05 | disposition home or self-care (01) | LOC: WOUND 01:48 | DX: L89.513 Pressure ulcer of right ankle, stage 3 (principal); L97.222 Non-pressure chronic ulcer of left calf with fat layer exposed; I87.2 Venous insufficiency (chronic) (peripheral); L97.812 Non-pressure chronic ulcer of other part of right lower leg with fat layer exposed | CPT/HCPCS: A9270; G0463 ==

== ENCOUNTER 2022-10-09 03:30 | Day surgery (SDC) | payer OTHER | END 2022-10-09 22:42 | disposition home or self-care (01) | LOC: WOUND 03:30 | DX: L89.513 Pressure ulcer of right ankle, stage 3 (principal); L97.822 Non-pressure chronic ulcer of other part of left lower leg with fat layer exposed; I87.2 Venous insufficiency (chronic) (peripheral) | CPT/HCPCS: A9270; G0463 ==

== ENCOUNTER 2022-10-17 09:28 | Emergency (ER) | payer OTHER ==
[~2022-10-17] VITALS: Ht 172.7 cm; Wt 65.8 kg
[~2022-10-17 09:28] MED LIST changes: -Budeprion Xl300 MG; +Budeprion Xl300 MG PO; -LOSA25; +LOSA25 PO
[2022-10-17] MEDS ORDERED: Amlodipine Bes2.5 MG PO (10:35)
[2022-10-17] MEDS ORDERED: FLUO10 PO (10:36)
[2022-10-17] MEDS ORDERED: HYDCHL25 PO (10:37)
[2022-10-17] MEDS ORDERED: OXYB5ER PO (10:41)
[2022-10-17 11:05] LABS: Source, Urine Straight Cath
[2022-10-17 11:18] LABS: Appearance, Urine Clear (Clear); Bilirubin, Urine Neg (Neg); Blood, Urine 1+ (Neg); Color, Urine Yellow (P-Yellow); Glucose Qualitative, Urine Neg (Neg); Ketones, Urine 1+ (Neg); Leukocyte Esterase, Urine Neg (Neg); Nitrite, Urine Neg (Neg); Protein, Urine 1+ (Neg); Specific Gravity, Urine 1.015 (1.003-1.022); Urobilinogen, Urine NORM (Normal)
[2022-10-17] MEDS ORDERED: VITAMIN D5000 UNIT PO (11:38)
[2022-10-17 11:39] LABS: Bacteria Not Seen /hpf; Red Blood Cells, Urine 0-2 /hpf (0-2); Squamous Epithelial Cells Not Seen /hpf (Few); Transitional Epithelial Cells Rare /hpf (0-Rare); White Blood Cells, Urine 0-2 /hpf (0-5)
[2022-10-17] MEDS ORDERED: TRAM50 PO (11:39)
[2022-10-17 12:25] LABS: Influenza B, PCR NEGATIVE (NEGATIVE); Resp Syncytial Virus, PCR NEGATIVE (NEGATIVE); SARS-Cov-2 (COVID-19) PCR, MMC NEGATIVE (NEGATIVE)
[2022-10-17 12:26] LABS: Influenza A, PCR POSITIVE (NEGATIVE)
[2022-10-17] MEDS ORDERED: OSEL75CA PO (12:50)
== END 2022-10-17 13:03 | disposition home or self-care (01) ==
LOC: ER 09:28
PROVIDERS: Student in an Organized Health Care Education/Training Program
DX: J10.1 Influenza due to other identified influenza virus with other respiratory manifestations (principal); E86.0 Dehydration; Z20.822 Contact with and (suspected) exposure to COVID-19; Z79.899 Other long term (current) drug therapy
CPT/HCPCS: 0241U; 51701; 81001

== ENCOUNTER → 2022-10-19 | Outpatient (CLI) | payer OTHER ==
[~2022-10-19] MED LIST changes: +Amlodipine Bes2.5 MG PO; +FLUO10 PO; +HYDCHL25 PO; +HYDR1TAB94 PO; +OSEL75CA PO; +OXYB5ER PO; +TRAM50 PO; +VITAMIN D5000 UNIT PO
[2022-10-19 19:00] LABS: Source, Urine Voided
[2022-10-19 19:53] LABS: Appearance, Urine Clear (Clear); Bilirubin, Urine Neg (Neg); Blood, Urine Neg (Neg); Color, Urine Yellow (P-Yellow); Glucose Qualitative, Urine Neg (Neg); Ketones, Urine Neg (Neg); Leukocyte Esterase, Urine 1+ (Neg); Nitrite, Urine Neg (Neg); Protein, Urine 1+ (Neg); Urobilinogen, Urine NORM (Normal)
[2022-10-19 20:05] LABS: Bacteria Rare /hpf; Red Blood Cells, Urine Not Seen /hpf (0-2); Squamous Epithelial Cells Not Seen /hpf (Few); White Blood Cells, Urine 0-2 /hpf (0-5)
== END | disposition home or self-care (01) ==
LOC: LAB SHORT 18:58 → LAB 18:58
PROVIDERS: Student in an Organized Health Care Education/Training Program
DX: N39.0 Urinary tract infection, site not specified (principal)
CPT/HCPCS: 81001

== ENCOUNTER 2022-10-20 09:25 | Emergency (ER) | payer OTHER ==
[~2022-10-20] VITALS: Ht 160 cm; Wt 63.5 kg
[~2022-10-20 09:25] MED LIST changes: -HYDR1TAB94 PO
[2022-10-20] MEDS ORDERED: HYDR1TAB94 PO (11:26)
== END 2022-10-20 12:43 | disposition home or self-care (01) ==
LOC: ER 09:25
DX: S70.01XA Contusion of right hip, initial encounter (principal); S76.011A Strain of muscle, fascia and tendon of right hip, initial encounter; W06.XXXA Fall from bed, initial encounter; Z79.899 Other long term (current) drug therapy
CPT/HCPCS: 73502; A9270

== ENCOUNTER → 2022-10-22 | Outpatient (CLI) | payer OTHER ==
[~2022-10-22] MED LIST changes: +HYDR1TAB94 PO
== END | disposition home or self-care (01) ==
LOC: LAB 19:25 → LAB SHORT 19:25
DX: M79.10 Myalgia, unspecified site (principal); R35.1 Nocturia
CPT/HCPCS: 87086

== ENCOUNTER 2022-10-23 02:29 | Day surgery (SDC) | payer OTHER | END 2022-10-23 23:01 | disposition home or self-care (01) | LOC: WOUND 02:29 | DX: L89.513 Pressure ulcer of right ankle, stage 3 (principal); L97.822 Non-pressure chronic ulcer of other part of left lower leg with fat layer exposed; L03.115 Cellulitis of right lower limb; I87.2 Venous insufficiency (chronic) (peripheral) | CPT/HCPCS: A9270 ==

== ENCOUNTER 2022-11-06 02:11 | Day surgery (SDC) | payer OTHER | END 2022-11-06 22:42 | disposition home or self-care (01) | LOC: WOUND 02:11 | DX: L89.513 Pressure ulcer of right ankle, stage 3 (principal); L97.822 Non-pressure chronic ulcer of other part of left lower leg with fat layer exposed; I87.2 Venous insufficiency (chronic) (peripheral); L03.115 Cellulitis of right lower limb | CPT/HCPCS: A9270; G0463 ==

== ENCOUNTER 2023-01-28 00:34 | Day surgery (SDC) | payer OTHER | END 2023-01-28 22:40 | disposition home or self-care (01) | LOC: WOUND 00:34 | DX: S91.002A Unspecified open wound, left ankle, initial encounter (principal); S91.001A Unspecified open wound, right ankle, initial encounter; I87.2 Venous insufficiency (chronic) (peripheral); I87.313 Chronic venous hypertension (idiopathic) with ulcer of bilateral lower extremity; L97.812 Non-pressure chronic ulcer of other part of right lower leg with fat layer exposed; L97.313 Non-pressure chronic ulcer of right ankle with necrosis of muscle; G35 Multiple sclerosis | CPT/HCPCS: A9270; G0463 ==

== ENCOUNTER 2023-02-04 00:31 | Day surgery (SDC) | payer OTHER | END 2023-02-04 23:10 | disposition home or self-care (01) | LOC: WOUND 00:31 | DX: I87.313 Chronic venous hypertension (idiopathic) with ulcer of bilateral lower extremity (principal); L97.822 Non-pressure chronic ulcer of other part of left lower leg with fat layer exposed; L97.322 Non-pressure chronic ulcer of left ankle with fat layer exposed; L97.812 Non-pressure chronic ulcer of other part of right lower leg with fat layer exposed; L97.312 Non-pressure chronic ulcer of right ankle with fat layer exposed; I87.2 Venous insufficiency (chronic) (peripheral); G35 Multiple sclerosis | CPT/HCPCS: A9270 ==

== ENCOUNTER 2023-02-11 00:18 | Day surgery (SDC) | payer OTHER | END 2023-02-11 22:39 | disposition home or self-care (01) | LOC: WOUND 00:18 | DX: I87.313 Chronic venous hypertension (idiopathic) with ulcer of bilateral lower extremity (principal); L97.812 Non-pressure chronic ulcer of other part of right lower leg with fat layer exposed; L97.313 Non-pressure chronic ulcer of right ankle with necrosis of muscle; L97.329 Non-pressure chronic ulcer of left ankle with unspecified severity; L97.829 Non-pressure chronic ulcer of other part of left lower leg with unspecified severity; I87.2 Venous insufficiency (chronic) (peripheral); G35 Multiple sclerosis | CPT/HCPCS: G0463 ==

== ENCOUNTER 2023-02-18 00:40 | Day surgery (SDC) | payer OTHER | END 2023-02-18 22:41 | disposition home or self-care (01) | LOC: WOUND 00:40 | DX: I87.313 Chronic venous hypertension (idiopathic) with ulcer of bilateral lower extremity (principal); I87.2 Venous insufficiency (chronic) (peripheral); L97.812 Non-pressure chronic ulcer of other part of right lower leg with fat layer exposed; G35 Multiple sclerosis; L97.822 Non-pressure chronic ulcer of other part of left lower leg with fat layer exposed; L97.322 Non-pressure chronic ulcer of left ankle with fat layer exposed; L97.312 Non-pressure chronic ulcer of right ankle with fat layer exposed | CPT/HCPCS: A9270 ==

== ENCOUNTER 2023-02-25 01:05 | Day surgery (SDC) | payer OTHER | END 2023-02-25 22:44 | disposition home or self-care (01) | LOC: WOUND 01:05 | DX: I87.313 Chronic venous hypertension (idiopathic) with ulcer of bilateral lower extremity (principal); L97.322 Non-pressure chronic ulcer of left ankle with fat layer exposed; L97.812 Non-pressure chronic ulcer of other part of right lower leg with fat layer exposed; L97.312 Non-pressure chronic ulcer of right ankle with fat layer exposed; L97.822 Non-pressure chronic ulcer of other part of left lower leg with fat layer exposed; G35 Multiple sclerosis | CPT/HCPCS: A9270; G0463 ==

== ENCOUNTER 2023-03-04 01:08 | Day surgery (SDC) | payer OTHER | END 2023-03-04 22:36 | disposition home or self-care (01) | LOC: WOUND 01:08 | DX: I87.313 Chronic venous hypertension (idiopathic) with ulcer of bilateral lower extremity (principal); I87.2 Venous insufficiency (chronic) (peripheral); L97.812 Non-pressure chronic ulcer of other part of right lower leg with fat layer exposed; G35 Multiple sclerosis; L97.322 Non-pressure chronic ulcer of left ankle with fat layer exposed; L97.312 Non-pressure chronic ulcer of right ankle with fat layer exposed | CPT/HCPCS: A9270 ==

== ENCOUNTER 2023-03-06 01:09 | Day surgery (SDC) | payer OTHER | END 2023-03-06 23:00 | disposition home or self-care (01) | LOC: WOUND 01:09 | DX: I87.311 Chronic venous hypertension (idiopathic) with ulcer of right lower extremity (principal); L97.812 Non-pressure chronic ulcer of other part of right lower leg with fat layer exposed; L97.313 Non-pressure chronic ulcer of right ankle with necrosis of muscle; I87.2 Venous insufficiency (chronic) (peripheral); G35 Multiple sclerosis ==

== ENCOUNTER 2023-03-11 00:20 | Day surgery (SDC) | payer OTHER | END 2023-03-11 22:51 | disposition home or self-care (01) | LOC: WOUND 00:20 | DX: I87.313 Chronic venous hypertension (idiopathic) with ulcer of bilateral lower extremity (principal); L97.812 Non-pressure chronic ulcer of other part of right lower leg with fat layer exposed; L97.329 Non-pressure chronic ulcer of left ankle with unspecified severity; I87.2 Venous insufficiency (chronic) (peripheral); G35 Multiple sclerosis | CPT/HCPCS: A9270 ==

== ENCOUNTER 2023-03-18 08:00 | Day surgery (SDC) | payer OTHER | END 2023-03-18 23:59 | disposition home or self-care (01) | LOC: WOUND 08:00 | DX: I87.313 Chronic venous hypertension (idiopathic) with ulcer of bilateral lower extremity (principal); L97.812 Non-pressure chronic ulcer of other part of right lower leg with fat layer exposed; L97.822 Non-pressure chronic ulcer of other part of left lower leg with fat layer exposed; L97.312 Non-pressure chronic ulcer of right ankle with fat layer exposed; L97.329 Non-pressure chronic ulcer of left ankle with unspecified severity; I87.2 Venous insufficiency (chronic) (peripheral); G35 Multiple sclerosis | CPT/HCPCS: A9270 ==

== ENCOUNTER 2023-03-25 02:10 | Day surgery (SDC) | payer OTHER | END 2023-03-25 22:49 | disposition home or self-care (01) | LOC: WOUND 02:10 | DX: I87.313 Chronic venous hypertension (idiopathic) with ulcer of bilateral lower extremity (principal); L97.812 Non-pressure chronic ulcer of other part of right lower leg with fat layer exposed; L97.329 Non-pressure chronic ulcer of left ankle with unspecified severity; I87.2 Venous insufficiency (chronic) (peripheral); G35 Multiple sclerosis | CPT/HCPCS: A9270 ==

== ENCOUNTER 2023-04-03 00:33 | Day surgery (SDC) | payer OTHER | END 2023-04-03 22:50 | disposition home or self-care (01) | LOC: WOUND 00:33 | DX: I87.313 Chronic venous hypertension (idiopathic) with ulcer of bilateral lower extremity (principal); L97.812 Non-pressure chronic ulcer of other part of right lower leg with fat layer exposed; L97.313 Non-pressure chronic ulcer of right ankle with necrosis of muscle; I87.2 Venous insufficiency (chronic) (peripheral); G35 Multiple sclerosis | CPT/HCPCS: A9270 ==

== ENCOUNTER 2023-04-08 01:30 | Day surgery (SDC) | payer OTHER | END 2023-04-08 22:51 | disposition home or self-care (01) | LOC: WOUND 01:30 | DX: I87.313 Chronic venous hypertension (idiopathic) with ulcer of bilateral lower extremity (principal); L97.812 Non-pressure chronic ulcer of other part of right lower leg with fat layer exposed; L97.313 Non-pressure chronic ulcer of right ankle with necrosis of muscle; I87.2 Venous insufficiency (chronic) (peripheral); G35 Multiple sclerosis | CPT/HCPCS: G0463 ==

== ENCOUNTER 2023-04-08 14:46 | Emergency (ER) | payer OTHER ==
[~2023-04-08] VITALS: Ht 170.2 cm; Wt 63.5 kg
[2023-04-08 15:01] LABS: BASOPHILS ABSOLUTE AUTO 0.02 K/mm3 (0.00-0.23); BASOPHILS PERCENT AUTO 1 % (0-2); EOSINOPHILS PERCENT AUTO 3 % (0-6); Hematocrit 33.4 % (33.0-51.0); Hemoglobin 10.6 g/dL (11.5-16.0); IMMATURE GRAN PERCENT AUTO 0 % (0-1); LYMPHOCYTES ABSOLUTE AUTO 0.78 K/mm3 (0.84-5.20); LYMPHOCYTES PERCENT AUTO 20 % (21-46); MONOCYTES ABSOLUTE AUTO 0.36 K/mm3 (0.16-1.47); MONOCYTES PERCENT AUTO 9 % (4-13); Mean Corpuscular HGB 27.9 pg (26.0-34.0); Mean Corpuscular HGB Conc 31.7 g/dL (31.5-36.5); Mean Corpuscular Volume 88 fL (80-100); Mean Platelet Volume 9.4 fL (9.1-12.4); NEUTROPHILS ABSOLUTE AUTO 2.73 K/mm3 (1.96-9.15); NEUTROPHILS PERCENT AUTO 69 % (41-73); Platelet Count 227 K/mm3 (150-400); RDW Coefficient Variation 13.7 % (11.7-14.2); RDW Standard Deviation 44.3 fL (35.1-46.3); White Blood Cell Count 3.99 K/mm3 (4.00-11.30)
[2023-04-08 15:21] LABS: Albumin, Blood 3.1 g/dL (3.4-5.0); Albumin/Globulin Ratio 0.9 (0.8-1.8); Bilirubin, Total 0.3 mg/dL (0.1-1.0); Bun/Creatinine Ratio 33.1 (12.0-20.0); Calcium, Blood 8.5 mg/dL (8.5-10.1); Creatinine, Blood 0.66 mg/dL (0.40-1.00); Globulin, Blood 3.5 g/dL (2.2-4.0); Potassium, Blood 3.7 mmol/L (3.5-5.5); Total Protein, Blood 6.6 g/dL (6.4-8.2)
[2023-04-08 15:29] LABS: Source, Urine Clean Catch
[2023-04-08 15:35] LABS: Appearance, Urine Clear (Clear); Bilirubin, Urine Neg (Neg); Blood, Urine Neg (Neg); Color, Urine Yellow (P-Yellow); Glucose Qualitative, Urine Neg (Neg); Ketones, Urine Neg (Neg); Leukocyte Esterase, Urine Neg (Neg); Nitrite, Urine Neg (Neg); Protein, Urine Neg (Neg); Specific Gravity, Urine 1.015 (1.003-1.022); Urobilinogen, Urine NORM (Normal)
[2023-04-08 17:39] VITALS: BP 116/57
== END 2023-04-08 17:41 | disposition home or self-care (01) ==
LOC: ER 14:46
PROVIDERS: Student in an Organized Health Care Education/Training Program
DX: I95.2 Hypotension due to drugs (principal); T42.8X5A Adverse effect of antiparkinsonism drugs and other central muscle-tone depressants, initial encounter; E86.1 Hypovolemia; Z79.899 Other long term (current) drug therapy
CPT/HCPCS: 51701; 80053; 81003; 83735; 85025; 93005; 93010; 99285-25; J7030

== ENCOUNTER 2023-04-11 11:13 | Emergency (ER) | payer OTHER ==
[~2023-04-11] VITALS: Ht 170.2 cm; Wt 63.5 kg
[2023-04-11 11:16] VITALS: BP 100/55
== END 2023-04-11 12:39 | disposition home or self-care (01) ==
LOC: ER 11:13
DX: R03.1 Nonspecific low blood-pressure reading (principal); S09.90XA Unspecified injury of head, initial encounter; G35 Multiple sclerosis; W18.30XA Fall on same level, unspecified, initial encounter; Z79.01 Long term (current) use of anticoagulants; Z79.899 Other long term (current) drug therapy
CPT/HCPCS: 70450; 99283-25

== ENCOUNTER 2023-04-16 02:22 | Day surgery (SDC) | payer OTHER | END 2023-04-16 23:03 | disposition home or self-care (01) | LOC: WOUND 02:22 | DX: I87.313 Chronic venous hypertension (idiopathic) with ulcer of bilateral lower extremity (principal); L97.812 Non-pressure chronic ulcer of other part of right lower leg with fat layer exposed; L97.313 Non-pressure chronic ulcer of right ankle with necrosis of muscle; I87.2 Venous insufficiency (chronic) (peripheral); G35 Multiple sclerosis ==

== ENCOUNTER 2023-04-22 03:56 | Day surgery (SDC) | payer OTHER | END 2023-04-22 22:52 | disposition home or self-care (01) | LOC: WOUND 03:56 | DX: I87.313 Chronic venous hypertension (idiopathic) with ulcer of bilateral lower extremity (principal); L97.812 Non-pressure chronic ulcer of other part of right lower leg with fat layer exposed; L97.313 Non-pressure chronic ulcer of right ankle with necrosis of muscle; I87.2 Venous insufficiency (chronic) (peripheral); G35 Multiple sclerosis | CPT/HCPCS: A9270 ==